=== PATIENT | female | born 1980 | race Caucasian/White ===

== ENCOUNTER 2021-06-04 18:55 | Emergency (ER) | payer BC ==
[2021-06-04 20:15] VITALS: BP 121/73; PULSE 68
[2021-06-04] MEDS ORDERED: Diphtheria,Pertussis(Acell),Tetanus Vaccine 0.5 ML Syringe IM ONE (20:37)
--- NOTE | 2021-06-04 20:37 | EDM.PDOC ---
ED HPI GENERAL MEDICAL PROBLEM - General Chief Complaint: Laceration Stated Complaint: CUT RT LEG ON TISH WIRE Time Seen by Provider: 06/04/21 20:30 Source of Information: Reports: Patient History Limitations: Reports: No Limitations - History of Present Illness INITIAL COMMENTS - FREE TEXT/NARRATIVE: Davion is a 40 year old female whom was [place] when she got her right anterior lower leg caught on barbed wire fence resulting in an anterior lower leg laceration, which bled through her stocking but wrapped with bandana. Her father whom is a retired High School Coordinator MD cleaned up the wound, applied mastisol and steri-strips to the 7 cm laceration, with pressure dressing and diane bandage. Davion did not recall last tetanus shot this evening a nd if further wound care recommended for laceration. [facility]IC was reviewed and last tetanus shot was completed in 2014. 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: Musculoskeletal History: Reports: Other (See Below) Other Musculoskeletal History: L foot pain - Infectious Disease History Infectious Disease History: Reports: Chicken Pox - Past Surgical History Female Surgical History: Reports: Section Social & Family History - Tobacco Use Tobacco Use Status *Q: Never Tobacco User - Caffeine Use Caffeine Use: Reports: Coffee, Soda, Tea - Recreational Drug Use Recreational Drug Use: No - Living Situation & Occupation Living situation: Reports: , with Spouse Occupation: Employed ED ROS GENERAL - Review of Systems Review Of Systems: Comprehensive ROS is negative, except as noted in HPI. ED EXAM, SKIN/RASH Exam: See Below Exam Limited By: No Limitations General Appearance: Alert, WD/WN, No Apparent Distress Eye Exam: Bilateral Eye: Normal Inspection Ears: Hearing Grossly Normal Nose: Normal Inspection Throat/Mouth: Normal Voice, No Airway Compromise Neck: Normal Inspection, Full Range of Motion Respiratory/Chest: No Respiratory Distress, Lungs Clear, Normal Breath Sounds Cardiovascular: Normal Peripheral Pulses, Regular Rate, Rhythm Extremities: Other (laceration right anterior lower leg (approx. 7.0 cm) which is approximated well with steri-strips. No bleeding, wound is very clean and dry. ) Neurological: Alert, Oriented, CN II-XII Intact, Normal Cognition, Normal Gait Psychiatric: Normal Affect, Normal Mood Course - Vital Signs Last Recorded V/S: Last Vital Signs Temp 36.3 C 06/04/21 20:13 Pulse 68 06/04/21 20:13 Resp 16 06/04/21 20:13 BP 121/73 06/04/21 20:13 Pulse Ox 100 06/04/21 20:13 - Re-Assessments/Exams Free Text/Narrative Re-Assessment/Exam: MARY tetanus was reported 2014 and due to concerning laceration for tetanus (metal barbed wire), updated tetanus shot is recommended today due to greater than 5 year since previous shot with concerning injury today. Laceration is dry, well approximated, bleeding controlled and sounds like good wound care was preformed before steri-strip closure. Area was re bandaged with free non- adherent dressing and diane wrap to support current closure method. I am not sure I could do a better job to close the laceration than has already been accomplished by her father. I recommended leaving it alone at this time but watching closely for secondary infection which may occur in 5 days. Antibiotic may be recommended if onset of infection. 06/04/21 20:45 Departure - Departure Time of Disposition: 21:10 Disposition: Home, Self-Care 01 Clinical Impression: Tetanus toxoid vaccination administered at current visit, Laceration of leg - Discharge Information Referrals: PCP,None [Primary Care Provider] - Additional Instructions: 1. Keep wound clean, dry and covered for the next 48 hours. 2. Water may run off wound but no scrubbing or topical antibiotic ointment (will cause [id number] to loosen). 3.Monitor area for signs of infection or signs of cellulitis over the next 3-7 days. 4. Wound check and oral antibiotic may be recommended if infection concerns. 5. Remove Steri-strips by rolling in 7 days. Continue to keep area bandage while active for 2-3 days after steri-strips removed. Sepsis Event Note (ED) - Focused Exam Vital Signs: Vital Signs Temp Pulse Resp BP Pulse Ox 06/04/21 20:13 36.3 C 68 16 121/73 100
== END 2021-06-04 21:06 | disposition home or self-care (01) ==
LOC: JP.ED 18:55
DX: S81.811A Laceration without foreign body, right lower leg, initial encounter (principal); Z23 Encounter for immunization; W26.8XXA Contact with other sharp object(s), not elsewhere classified, initial encounter
CPT/HCPCS: 90471; 90715; 99282